=== PATIENT | female | born 1965 | race Caucasian/White ===

== ENCOUNTER 2018-04-10 01:00 | Emergency (ER) | payer MEDICAID ==
[2018-04-10] VITALS (12 sets, daily range): BP systolic 118–174; BP diastolic 61–108
[~2018-04-10] VITALS: Ht 172.7 cm; Wt 88.5 kg
[2018-04-10 01:49] LABS: MEAN CORPUSCULAR HEMOGLOBIN 18.5 PG (27.0-31.0); MEAN CORPUSCULAR HGB CONC 31.9 % (33.0-36.5); MEAN PLATELET VOLUME 8.5 FL (7.4-10.4); PLATELET COUNT 452 X10'3 (140-440); RED CELL DISTRIBUTION WIDTH 19.8 % (11.5-14.5)
[2018-04-10 01:52] LABS: HEMATOCRIT 15.7 % (35.0-45.0); WHITE BLOOD COUNT 8.6 X10'3 (4.5-11.0)
[2018-04-10 01:58] LABS: ALANINE AMINOTRANSFERASE 24 U/L (12-78); ALBUMIN 2.9 G/DL (3.4-5.0); ALBUMIN/GLOBULIN RATIO 0.8 (1.1-1.5); ALKALINE PHOSPHATASE 78 IU/L (46-116); ANION GAP 10 (8-16); ASPARTATE AMINO TRANSFERASE 18 U/L (10-37); BILIRUBIN,TOTAL 0.2 MG/DL (0.1-1.0); BLOOD UREA NITROGEN 15 MG/DL (7-18); CALCIUM 8.9 MG/DL (8.5-10.1); CHLORIDE 103 MMOL/L (99-107); GLUCOSE 97 MG/DL (70-104); POTASSIUM 4.2 MMOL/L (3.5-5.1); SODIUM 140 MMOL/L (135-145); TOTAL CARBON DIOXIDE 27.3 MMOL/L (24-32); TOTAL PROTEIN 6.7 G/DL (6.4-8.2); eGFR 58 ML/MIN
[2018-04-10] MEDS ORDERED: tranexamic acid inj. 800 MG in normal saline 100ml IV soln 92 ML IV ONE (02:05)
[2018-04-10 02:09] LABS: D-DIMER 0.76 MG/L FEU (0-0.50); PARTIAL THROMBOPLASTIN TIME 24 SECONDS (22-32)
[2018-04-10] MEDS ORDERED: tranexamic acid 100mg/ml inj. IV ONE (02:10)
[2018-04-10 02:16] LABS: HYPOCHROMASIA 3+; MICROCYTOSIS 3+; PLATELET ESTIMATE INCREASED; POLYCHROMASIA 1+; TOTAL CELLS COUNTED 100
[2018-04-10 02:17] LABS: ANISOCYTOSIS 2+; ELLIPTOCYTES 1+; POIKILOCYTOSIS 1+
[2018-04-10 02:18] LABS: GIANT PLATELET FEW; LARGE PLATELETS FEW
[2018-04-10] MEDS ORDERED: tranexamic acid inj. 890 MG in normal saline 100ml IV soln 91.1 ML IV ONE (02:20)
[2018-04-10 10:17] LABS: BASOPHILS # (AUTO) 0.1 X10'3 (0-0.2); BASOPHILS % (AUTO) 1.3 % (0-1); EOSINOPHILS # (AUTO) 0.5 X10'3 (0-0.9); EOSINOPHILS % (AUTO) 5.7 % (0-6); HEMATOCRIT 23.4 % (35.0-45.0); HEMOGLOBIN 7.3 g/dl (12.0-16.0); LYMPHOCYTES # (AUTO) 1.8 X10'3 (1.1-4.8); LYMPHOCYTES % (AUTO) 20.7 % (21-51); MEAN CORPUSCULAR HEMOGLOBIN 21.4 PG (27.0-31.0); MEAN CORPUSCULAR HGB CONC 31.2 % (33.0-36.5); MEAN CORPUSCULAR VOLUME 68.5 FL (78-98); MEAN PLATELET VOLUME 8.4 FL (7.4-10.4); MONOCYTES # (AUTO) 1.2 X10'3 (0-0.9); NEUTROPHILS # (AUTO) 5.1 X10'3 (1.8-7.7); NEUTROPHILS % (AUTO) 58.3 % (42-75); PLATELET COUNT 373 X10'3 (140-440); RED BLOOD COUNT 3.41 X10'6 (4.20-5.60); WHITE BLOOD COUNT 8.8 X10'3 (4.5-11.0)
[2018-04-10 10:49] LABS: ANISOCYTOSIS 3+; HYPOCHROMASIA 2+; MICROCYTOSIS 2+; PLATELET ESTIMATE NORMAL; TARGET CELLS FEW
[2018-04-10 10:50] LABS: ELLIPTOCYTES FEW
== END 2018-04-10 11:56 | disposition short-term general hospital (02) ==
LOC: ER 01:01
DX: D25.9 Leiomyoma of uterus, unspecified (principal); N94.6 Dysmenorrhea, unspecified; R42 Dizziness and giddiness; M79.89 Other specified soft tissue disorders; Z88.2 Allergy status to sulfonamides
CPT/HCPCS: 36415; 36430; 71045; 76856; 80053; 84484; 85025; 85379; 85610; 85730; 86885; 86900; 86901; 86920; 93005; 93971; 96374; 99285; P9016; J7030

== ENCOUNTER 2018-10-22 15:18 | Emergency (ER) | payer MEDICAID ==
[~2018-10-22] VITALS: Ht 172.7 cm; Wt 90.0 kg
[2018-10-22 15:47] LABS: BASOPHILS # (AUTO) 0.1 X10'3 (0-0.2); BASOPHILS % (AUTO) 1.1 % (0-1); EOSINOPHILS # (AUTO) 0.4 X10'3 (0-0.9); EOSINOPHILS % (AUTO) 5.2 % (0-6); HEMATOCRIT 29.6 % (35.0-45.0); HEMOGLOBIN 9.9 g/dl (12.0-16.0); LYMPHOCYTES # (AUTO) 1.7 X10'3 (1.1-4.8); LYMPHOCYTES % (AUTO) 22.5 % (21-51); MEAN CORPUSCULAR HEMOGLOBIN 28.5 PG (27.0-31.0); MEAN CORPUSCULAR HGB CONC 33.6 g/dL (33.0-36.5); MEAN CORPUSCULAR VOLUME 84.6 FL (78-98); MONOCYTES # (AUTO) 0.7 X10'3 (0-0.9); MONOCYTES % (AUTO) 9.1 % (2-12); NEUTROPHILS # (AUTO) 4.6 X10'3 (1.8-7.7); NEUTROPHILS % (AUTO) 62.1 % (42-75); PLATELET COUNT 291 X10'3 (140-440); RED BLOOD COUNT 3.49 X10'6 (4.20-5.60); RED CELL DISTRIBUTION WIDTH 18.1 % (11.5-14.5); WHITE BLOOD COUNT 7.4 X10'3 (4.5-11.0)
[2018-10-22 16:00] LABS: ALANINE AMINOTRANSFERASE 26 U/L (12-78); ALBUMIN 2.9 G/DL (3.4-5.0); ALBUMIN/GLOBULIN RATIO 0.9 (1.1-1.5); ALKALINE PHOSPHATASE 61 IU/L (46-116); ANION GAP 6 (8-16); ASPARTATE AMINO TRANSFERASE 20 U/L (10-37); BILIRUBIN,TOTAL 0.2 MG/DL (0.1-1.0); BLOOD UREA NITROGEN 13 MG/DL (7-18); BUN/CREATININE RATIO 16.7 (6.6-38.0); CALCIUM 9.1 MG/DL (8.5-10.1); CHLORIDE 104 MMOL/L (99-107); CREATININE 0.78 MG/DL (0.40-0.90); GLUCOSE 89 MG/DL (70-104); POTASSIUM 4.1 MMOL/L (3.5-5.1); SODIUM 138 MMOL/L (135-145); TOTAL PROTEIN 6.3 G/DL (6.4-8.2); eGFR 77 ML/MIN
[2018-10-22 16:43] VITALS: BP 107/64
[2018-10-22] MEDS ORDERED: ibuprofen tablet 400 MG TABLET PO ONE (16:55)
--- NOTE | 2018-10-22 17:18 | NUR ---
ASSISTED PT TO REMOVE PAD AND TAMPON, SCANT AMOUT OF OLD BLOOD ON PAD, TAMPON WITH BROWN/OLD BLOOD, NO GUSHING NOTED. POSITION PT ON CHANNEL LAYER TABLE.
--- NOTE | 2018-10-22 17:46 | NUR ---
pt not able to give us urine, have to draw more labs, pt states has situation at home and wants to leave, provider vince aware.
[2018-10-22 18:00] LABS: HEMATOCRIT 30.1 % (35.0-45.0); HEMOGLOBIN 10.1 g/dl (12.0-16.0); MEAN CORPUSCULAR HEMOGLOBIN 28.6 PG (27.0-31.0); MEAN CORPUSCULAR HGB CONC 33.6 g/dL (33.0-36.5); MEAN CORPUSCULAR VOLUME 85.1 FL (78-98); MEAN PLATELET VOLUME 7.9 FL (7.4-10.4); PLATELET COUNT 293 X10'3 (140-440); RED BLOOD COUNT 3.53 X10'6 (4.20-5.60); WHITE BLOOD COUNT 9.7 X10'3 (4.5-11.0)
== END 2018-10-22 17:59 | disposition home or self-care (01) ==
LOC: ER 15:19
DX: N93.9 Abnormal uterine and vaginal bleeding, unspecified (principal); R06.02 Shortness of breath; Z88.2 Allergy status to sulfonamides
CPT/HCPCS: 36415; 80053; 85025; 85027; 99283

== ENCOUNTER 2019-07-14 00:38 | Emergency (ER) | payer MEDICAID ==
[~2019-07-14] VITALS: Ht 172.7 cm; Wt 90.9 kg
[2019-07-14] VITALS (7 sets, daily range): BP systolic 129–165; BP diastolic 77–100
[2019-07-14 01:25] LABS: BASOPHILS # (AUTO) 0.1 X10'3 (0-0.2); EOSINOPHILS # (AUTO) 0.5 X10'3 (0-0.9); EOSINOPHILS % (AUTO) 5.9 % (0-6); LYMPHOCYTES # (AUTO) 1.8 X10'3 (1.1-4.8); LYMPHOCYTES % (AUTO) 19.5 % (21-51); MEAN CORPUSCULAR HEMOGLOBIN 23.7 PG (27.0-31.0); MEAN CORPUSCULAR HGB CONC 32.2 g/dL (33.0-36.5); MEAN CORPUSCULAR VOLUME 73.5 FL (78-98); MEAN PLATELET VOLUME 7.6 FL (7.4-10.4); MONOCYTES % (AUTO) 11.2 % (2-12); NEUTROPHILS # (AUTO) 5.8 X10'3 (1.8-7.7); NEUTROPHILS % (AUTO) 62.4 % (42-75); PLATELET COUNT 340 X10'3 (140-440); RED BLOOD COUNT 2.46 X10'6 (4.20-5.60); RED CELL DISTRIBUTION WIDTH 20.8 % (11.5-14.5); WHITE BLOOD COUNT 9.3 X10'3 (4.5-11.0)
[2019-07-14 01:30] LABS: HEMATOCRIT 18.1 % (35.0-45.0); HEMOGLOBIN 5.8 g/dl (12.0-16.0)
[2019-07-14 01:40] LABS: ALANINE AMINOTRANSFERASE 34 U/L (12-78); ALBUMIN 3.1 G/DL (3.4-5.0); ALBUMIN/GLOBULIN RATIO 0.9 (1.1-1.5); ALKALINE PHOSPHATASE 78 IU/L (46-116); ANION GAP 6 (8-16); ASPARTATE AMINO TRANSFERASE 31 U/L (10-37); BILIRUBIN,TOTAL 0.2 MG/DL (0.1-1.0); BLOOD UREA NITROGEN 16 MG/DL (7-18); BUN/CREATININE RATIO 17.4 (6.6-38.0); CALCIUM 9.2 MG/DL (8.5-10.1); CHLORIDE 106 MMOL/L (99-107); CREATININE 0.92 MG/DL (0.40-0.90); GLUCOSE 102 MG/DL (70-104); POTASSIUM 4.2 MMOL/L (3.5-5.1); SODIUM 139 MMOL/L (135-145); TOTAL CARBON DIOXIDE 26.7 MMOL/L (24-32); TOTAL PROTEIN 6.5 G/DL (6.4-8.2); eGFR 64 ML/MIN
[2019-07-14] MEDS ORDERED: TRANEXAMIC ACID IV ONE (02:25)
[2019-07-14] MEDS ORDERED: NORMAL SALINE IV ONE (02:25)
[2019-07-14] MEDS ORDERED: TRANEXAMIC ACID 1 GM IN NACL,ISO-OS 100 ML IV ONE (02:35)
[2019-07-14] MEDS ORDERED: iohexol 300mg/ml 100ml inj. ONE (02:56)
[2019-07-14 03:27] LABS: PLATELET ESTIMATE NORMAL
[2019-07-14 03:28] LABS: ANISOCYTOSIS 2+; HYPOCHROMASIA 1+; MICROCYTOSIS 1+
[2019-07-14] MEDS ORDERED: fluconazole 150mg tablet PO ONE (05:20)
[2019-07-14 12:04] LABS: BASOPHILS # (AUTO) 0.1 X10'3 (0-0.2); BASOPHILS % (AUTO) 1.4 % (0-1); EOSINOPHILS # (AUTO) 0.5 X10'3 (0-0.9); EOSINOPHILS % (AUTO) 5.4 % (0-6); LYMPHOCYTES % (AUTO) 21.8 % (21-51); MEAN CORPUSCULAR HEMOGLOBIN 24.5 PG (27.0-31.0); MEAN CORPUSCULAR HGB CONC 32.2 g/dL (33.0-36.5); MEAN CORPUSCULAR VOLUME 76.1 FL (78-98); MEAN PLATELET VOLUME 8.1 FL (7.4-10.4); MONOCYTES # (AUTO) 0.7 X10'3 (0-0.9); MONOCYTES % (AUTO) 7.2 % (2-12); NEUTROPHILS # (AUTO) 5.8 X10'3 (1.8-7.7); NEUTROPHILS % (AUTO) 64.2 % (42-75); PLATELET COUNT 328 X10'3 (140-440); RED BLOOD COUNT 2.85 X10'6 (4.20-5.60); RED CELL DISTRIBUTION WIDTH 20.5 % (11.5-14.5); WHITE BLOOD COUNT 9.1 X10'3 (4.5-11.0)
[2019-07-14 12:15] LABS: HEMATOCRIT 21.7 % (35.0-45.0)
[2019-07-14 12:30] LABS: BASOPHILS # (AUTO) 0.1 X10'3 (0-0.2); BASOPHILS % (AUTO) 1.3 % (0-1); EOSINOPHILS # (AUTO) 0.4 X10'3 (0-0.9); EOSINOPHILS % (AUTO) 4.3 % (0-6); HEMATOCRIT 26.2 % (35.0-45.0); HEMOGLOBIN 8.5 g/dl (12.0-16.0); LYMPHOCYTES # (AUTO) 1.4 X10'3 (1.1-4.8); LYMPHOCYTES % (AUTO) 14.5 % (21-51); MEAN CORPUSCULAR HEMOGLOBIN 24.5 PG (27.0-31.0); MEAN CORPUSCULAR HGB CONC 32.4 g/dL (33.0-36.5); MEAN CORPUSCULAR VOLUME 75.7 FL (78-98); MEAN PLATELET VOLUME 7.7 FL (7.4-10.4); MONOCYTES # (AUTO) 0.9 X10'3 (0-0.9); NEUTROPHILS # (AUTO) 7.1 X10'3 (1.8-7.7); NEUTROPHILS % (AUTO) 70.9 % (42-75); PLATELET COUNT 326 X10'3 (140-440); RED BLOOD COUNT 3.46 X10'6 (4.20-5.60)
[2019-07-14 13:23] LABS: ANISOCYTOSIS 2+; HYPOCHROMASIA 1+; MICROCYTOSIS 1+; PLATELET ESTIMATE NORMAL; POLYCHROMASIA FEW
== END 2019-07-14 13:37 | disposition home or self-care (01) ==
LOC: ER 00:39
DX: N92.1 Excessive and frequent menstruation with irregular cycle (principal); D64.9 Anemia, unspecified; D21.9 Benign neoplasm of connective and other soft tissue, unspecified; Z88.2 Allergy status to sulfonamides
CPT/HCPCS: 36415; 36430; 71045; 74177; 80053; 83880; 84484; 85025; 86885; 86900; 86901; 86920; 93005; 96365; 99285; P9016; Q9967

== ENCOUNTER 2020-03-31 14:38 | Emergency (ER) | payer MEDICAID ==
[~2020-03-31] VITALS: Ht 172.7 cm; Wt 90.0 kg
[2020-03-31 15:31] LABS: BASOPHILS # (AUTO) 0.1 X10'3 (0-0.2); BASOPHILS % (AUTO) 1.4 % (0-1); EOSINOPHILS # (AUTO) 0.8 X10'3 (0-0.9); EOSINOPHILS % (AUTO) 7.2 % (0-6); HEMATOCRIT 22.4 % (35.0-45.0); HEMOGLOBIN 7.1 g/dl (12.0-16.0); LYMPHOCYTES # (AUTO) 2.2 X10'3 (1.1-4.8); LYMPHOCYTES % (AUTO) 20.9 % (21-51); MEAN CORPUSCULAR HEMOGLOBIN 24.3 PG (27.0-31.0); MEAN CORPUSCULAR HGB CONC 31.6 g/dL (33.0-36.5); MEAN PLATELET VOLUME 7.3 FL (7.4-10.4); MONOCYTES # (AUTO) 0.8 X10'3 (0-0.9); MONOCYTES % (AUTO) 7.1 % (2-12); NEUTROPHILS # (AUTO) 6.7 X10'3 (1.8-7.7); NEUTROPHILS % (AUTO) 63.4 % (42-75); PLATELET COUNT 393 X10'3 (140-440); RED BLOOD COUNT 2.91 X10'6 (4.20-5.60); WHITE BLOOD COUNT 10.6 X10'3 (4.5-11.0)
[2020-03-31 15:44] LABS: ALANINE AMINOTRANSFERASE 52 U/L (12-78); ALBUMIN 3.2 G/DL (3.4-5.0); ALBUMIN/GLOBULIN RATIO 0.7 (1.1-1.5); ALKALINE PHOSPHATASE 130 IU/L (46-116); ANION GAP 7 (8-16); ASPARTATE AMINO TRANSFERASE 26 U/L (10-37); BILIRUBIN,TOTAL 0.2 MG/DL (0.1-1.0); BLOOD UREA NITROGEN 15 MG/DL (7-18); BUN/CREATININE RATIO 13.9 (6.6-38.0); CALCIUM 9.2 MG/DL (8.5-10.1); CHLORIDE 104 MMOL/L (99-107); CREATININE 1.08 MG/DL (0.40-0.90); GLUCOSE 111 MG/DL (70-104); SODIUM 137 MMOL/L (135-145); TOTAL CARBON DIOXIDE 25.7 MMOL/L (24-32); TOTAL PROTEIN 7.6 G/DL (6.4-8.2); eGFR 53 ML/MIN
--- NOTE | 2020-03-31 15:58 | NUR ---
PT MOVED FROM FTD TO ER BED 8 D/T NEED FOR HIGHER LEVEL OF CARE. PT HBG/HCT 7.06/16. PT TAKEN TO BED VIA WC ONCE IN ROOM PT STATES SHE NEEDS TO USE THE RESTROOM, SHE DECLINES W/C TO RESTROOM. PT AMBULATED WITH STEADY GAIT. INQUIRED IF PT COULD PROVIDE A UA PT REFUSES. REPORT GIVEN TO BLADIMIR CASTILLO AND REJI CASTILLO.
[2020-03-31 16:39] LABS: ANISOCYTOSIS 2+; HYPOCHROMASIA 1+; MICROCYTOSIS 1+; PLATELET ESTIMATE NORMAL; POLYCHROMASIA 2+
[2020-03-31 16:40] LABS: POIKILOCYTOSIS 1+
[2020-03-31] MEDS ORDERED: normal saline 1000ml 1,000 ML IV ONE (16:50)
[2020-03-31 17:42] VITALS: BP 176/92
== END 2020-03-31 17:44 | disposition home or self-care (01) ==
LOC: ER 14:39
DX: N89.8 Other specified noninflammatory disorders of vagina (principal); R42 Dizziness and giddiness; R53.1 Weakness; Z88.2 Allergy status to sulfonamides
CPT/HCPCS: 36415; 80053; 85008; 85025; 86885; 86900; 86901; 96360; 99283; J7030

== ENCOUNTER 2020-04-10 15:00 | Emergency (ER) | payer MEDICAID ==
[~2020-04-10] VITALS: Ht 172.7 cm; Wt 100.0 kg
[2020-04-10 15:57] LABS: BASOPHILS # (AUTO) 0.2 X10'3 (0-0.2); BASOPHILS % (AUTO) 2.6 % (0-1); EOSINOPHILS # (AUTO) 0.7 X10'3 (0-0.9); HEMATOCRIT 23.9 % (35.0-45.0); HEMOGLOBIN 7.5 g/dl (12.0-16.0); LYMPHOCYTES # (AUTO) 1.7 X10'3 (1.1-4.8); MEAN CORPUSCULAR HEMOGLOBIN 23.2 PG (27.0-31.0); MEAN CORPUSCULAR HGB CONC 31.3 g/dL (33.0-36.5); MEAN CORPUSCULAR VOLUME 74.1 FL (78-98); MEAN PLATELET VOLUME 7.6 FL (7.4-10.4); MONOCYTES # (AUTO) 0.8 X10'3 (0-0.9); MONOCYTES % (AUTO) 10.1 % (2-12); NEUTROPHILS # (AUTO) 4.8 X10'3 (1.8-7.7); NEUTROPHILS % (AUTO) 58.3 % (42-75); PLATELET COUNT 533 X10'3 (140-440); RED BLOOD COUNT 3.22 X10'6 (4.20-5.60); RED CELL DISTRIBUTION WIDTH 19.2 % (11.5-14.5); WHITE BLOOD COUNT 8.2 X10'3 (4.5-11.0)
[2020-04-10 16:12] LABS: ALANINE AMINOTRANSFERASE 27 U/L (12-78); ALBUMIN 3.3 G/DL (3.4-5.0); ALBUMIN/GLOBULIN RATIO 0.8 (1.1-1.5); ALKALINE PHOSPHATASE 113 IU/L (46-116); ANION GAP 8 (8-16); ASPARTATE AMINO TRANSFERASE 18 U/L (10-37); BILIRUBIN,TOTAL 0.2 MG/DL (0.1-1.0); BLOOD UREA NITROGEN 21 MG/DL (7-18); BUN/CREATININE RATIO 20.6 (6.6-38.0); CALCIUM 9.4 MG/DL (8.5-10.1); CHLORIDE 105 MMOL/L (99-107); CREATININE 1.02 MG/DL (0.40-0.90); GLUCOSE 104 MG/DL (70-104); LIPASE 122 U/L (73-393); POTASSIUM 4.4 MMOL/L (3.5-5.1); SODIUM 140 MMOL/L (135-145); TOTAL CARBON DIOXIDE 27.2 MMOL/L (24-32); TOTAL PROTEIN 7.5 G/DL (6.4-8.2); eGFR 56 ML/MIN
[2020-04-10 16:33] LABS: LARGE PLATELETS FEW; PLATELET ESTIMATE INCREASED
[2020-04-10 16:34] LABS: ANISOCYTOSIS 2+; HYPOCHROMASIA 2+; MICROCYTOSIS 1+; POLYCHROMASIA 1+
[2020-04-10 16:44] LABS: PARTIAL THROMBOPLASTIN TIME 27 SECONDS (22-32)
--- NOTE | 2020-04-10 17:34 | NUR ---
Patient unable to provide urine sample at this time, KARLO Vuong made aware.
[2020-04-10 17:43] VITALS: BP 176/100
== END 2020-04-10 17:49 | disposition home or self-care (01) ==
LOC: ER 15:01
DX: D62 Acute posthemorrhagic anemia (principal); F41.9 Anxiety disorder, unspecified; R06.02 Shortness of breath; N93.9 Abnormal uterine and vaginal bleeding, unspecified; Z88.2 Allergy status to sulfonamides
CPT/HCPCS: 36415; 71045; 80053; 83690; 84484; 85008; 85025; 85610; 85730; 93005; 99285

== ENCOUNTER 2021-09-22 02:44 | Inpatient (IN) | payer MEDICAID ==
[~2021-09-22] VITALS: Ht 172.7 cm; Wt 99.0 kg
[2021-09-22 03:37] LABS: EOSINOPHILS # (AUTO) 0.6 X10'3 (0-0.9); HEMOGLOBIN 7.4 g/dl (12.0-16.0); MEAN CORPUSCULAR HGB CONC 32.4 g/dL (33.0-36.5); MEAN PLATELET VOLUME 7.4 FL (7.4-10.4)
[2021-09-22 03:38] LABS: BASOPHILS # (AUTO) 0.1 X10'3 (0-0.2); BASOPHILS % (AUTO) 1.2 % (0-1); EOSINOPHILS % (AUTO) 6.3 % (0-6); HEMATOCRIT 22.8 % (35.0-45.0); LYMPHOCYTES # (AUTO) 1.6 X10'3 (1.1-4.8); LYMPHOCYTES % (AUTO) 15.5 % (21-51); MEAN CORPUSCULAR HEMOGLOBIN 26.6 PG (27.0-31.0); MEAN CORPUSCULAR VOLUME 82.1 FL (78-98); MONOCYTES # (AUTO) 1.2 X10'3 (0-0.9); MONOCYTES % (AUTO) 11.7 % (2-12); NEUTROPHILS # (AUTO) 6.7 X10'3 (1.8-7.7); NEUTROPHILS % (AUTO) 65.3 % (42-75); PLATELET COUNT 531 X10'3 (140-440); RED BLOOD COUNT 2.78 X10'6 (4.20-5.60); RED CELL DISTRIBUTION WIDTH 15.7 % (11.5-14.5); WHITE BLOOD COUNT 10.3 X10'3 (4.5-11.0)
[2021-09-22 03:44] LABS: ALANINE AMINOTRANSFERASE 28 U/L (12-78); ALBUMIN 3.2 G/DL (3.4-5.0); ALBUMIN/GLOBULIN RATIO 0.8 (1.1-1.5); ALKALINE PHOSPHATASE 102 IU/L (46-116); ANION GAP 10 (8-16); ASPARTATE AMINO TRANSFERASE 22 U/L (10-37); BILIRUBIN,TOTAL 0.7 MG/DL (0.1-1.0); BLOOD UREA NITROGEN 16 MG/DL (7-18); BUN/CREATININE RATIO 19.5 (6.6-38.0); CALCIUM 9.2 MG/DL (8.5-10.1); CHLORIDE 106 MMOL/L (99-107); CREATININE 0.82 MG/DL (0.40-0.90); GLUCOSE 94 MG/DL (70-104); POTASSIUM 3.3 MMOL/L (3.5-5.1); SODIUM 140 MMOL/L (135-145); TOTAL CARBON DIOXIDE 24.3 MMOL/L (24-32); TOTAL PROTEIN 7.3 G/DL (6.4-8.2); eGFR 72 ML/MIN
[2021-09-22] MEDS ORDERED: aspirin 81mg tab.chew PO ONE (04:00)
[2021-09-22] MEDS ORDERED: potassium Cl 20 mEq SR tablet PO STA (04:00)
[2021-09-22] MEDS ORDERED: HYDROcodone/acetaminophen 5mg/325mg tablet PO PRN (04:25)
[2021-09-22] MEDS ORDERED: acetaminophen 325mg tablet PO PRN ×2 (04:25)
[2021-09-22] MEDS ORDERED: magnesium 2GM in 50ml NS 50 ML IV PRN (04:25)
[2021-09-22] MEDS ORDERED: morphine 2 MG/ML inj. syringe IV PRN (04:25)
[2021-09-22] MEDS ORDERED: magnesium Cl slow-release 64mg tablet PO PRN (04:25)
[2021-09-22] MEDS ORDERED: normal saline 1000ml 1,000 ML IV SCH (04:25)
[2021-09-22] MEDS ORDERED: potassium Cl 20 mEq SR tablet PO PRN ×2 (04:25)
[2021-09-22] MEDS ORDERED: magnesium 4gm in 100ml NS 100 ML IV PRN (04:25)
[2021-09-22] MEDS ORDERED: ondansetron/PF 4mg/2ml inj IV PRN (04:25)
[2021-09-22] MEDS ORDERED: potassium CL 10mEq/100ml bag 100 ML IV PRN (04:25)
[2021-09-22 05:17] VITALS: BP 132/83
[2021-09-22] MEDS ORDERED: CefTRIAXone 2gm/NS 100ml IVPB 100 ML IV ONE (05:30)
[2021-09-22] MEDS ORDERED: CefTRIAXone 2gm/NS 100ml IVPB 50 ML IV ONE (05:30)
[2021-09-22 05:36] VITALS: BP 145/85
[2021-09-22 06:03] LABS: CLARITY,URINE CLEAR (Clear); COLOR,URINE YELLOW (Yellow); GLUCOSE, URINE NEGATIVE (Neg); KETONES,URINE NEGATIVE (Neg); LEUKOCYTE ESTERASE ,URINE NEGATIVE (Neg); NITRITES, URINE NEGATIVE (Neg); OCCULT BLOOD,URINE NEGATIVE (Neg); PROTEIN,URINE NEGATIVE (Neg); UROBILINOGEN,URINE 0.2 E.U/dL (0.2-1.0)
[2021-09-22 06:22] LABS: UA COLLECTION TYPE NON-SPECIFIED
[2021-09-22 06:57] VITALS: BP 129/82
--- NOTE | 2021-09-22 07:00 | NUR ---
pt tolerating prbcs well. increased to 300cc/hr
[2021-09-22 07:20] VITALS: BP 141/89
--- NOTE | 2021-09-22 07:20 | NUR ---
blood transfusion ended. pt tolerated well. no reaction.
[2021-09-22] MEDS ORDERED: K and/or MAG REPLACEMENT MC SCH (08:00)
[2021-09-22] MEDS ORDERED: pantoprazole 40MG/NS 100ML BAG 100 ML IV SCH (08:00)
[2021-09-22 12:40] LABS: HEMATOCRIT 26.3 % (35.0-45.0); HEMOGLOBIN 8.8 g/dl (12.0-16.0); MEAN CORPUSCULAR HEMOGLOBIN 27.7 PG (27.0-31.0); MEAN CORPUSCULAR HGB CONC 33.4 g/dL (33.0-36.5); MEAN CORPUSCULAR VOLUME 82.8 FL (78-98); PLATELET COUNT 474 X10'3 (140-440); RED BLOOD COUNT 3.18 X10'6 (4.20-5.60); RED CELL DISTRIBUTION WIDTH 15.9 % (11.5-14.5); WHITE BLOOD COUNT 10.2 X10'3 (4.5-11.0)
[2021-09-22 14:36] VITALS: BP 117/74
== END 2021-09-22 15:24 | disposition home or self-care (01) | DRG 532 ==
LOC: ER 02:44 → UNDOADMIN 04:26 → ED HOLD 04:26 → UNDODISIN 15:24
PROVIDERS: ADMIT Internal Medicine; ATTEND Family Medicine
PROC: 30233N1 Transfusion of Nonautologous Red Blood Cells into Peripheral Vein, Percutaneous Approach (ICD-10-PCS; principal; 2021-09-22)
DX: N93.9 Abnormal uterine and vaginal bleeding, unspecified (principal); I21.A1 Myocardial infarction type 2; D64.9 Anemia, unspecified; D25.9 Leiomyoma of uterus, unspecified; M25.551 Pain in right hip; R91.8 Other nonspecific abnormal finding of lung field; E87.6 Hypokalemia; K92.2 Gastrointestinal hemorrhage, unspecified; F17.210 Nicotine dependence, cigarettes, uncomplicated; Z88.2 Allergy status to sulfonamides
CPT/HCPCS: 36415; 36430; 71045; 80053; 81003; 83605; 83880; 84484; 85025; 85027; 86885; 86900; 86901; 86920; 87040; 93306; 99291; C9113; G0378; J0696; J7030; P9016

== ENCOUNTER 2021-09-30 05:20 | Emergency (ER) | payer MEDICAID ==
[~2021-09-30] VITALS: Ht 172.7 cm; Wt 93.5 kg
[2021-09-30 06:01] LABS: BASOPHILS # (AUTO) 0.1 X10'3 (0-0.2); BASOPHILS % (AUTO) 1.1 % (0-1); EOSINOPHILS # (AUTO) 0.6 X10'3 (0-0.9); EOSINOPHILS % (AUTO) 5.6 % (0-6); HEMOGLOBIN 9.1 g/dl (12.0-16.0); LYMPHOCYTES # (AUTO) 1.6 X10'3 (1.1-4.8); LYMPHOCYTES % (AUTO) 15.1 % (21-51); MEAN CORPUSCULAR HEMOGLOBIN 25.4 PG (27.0-31.0); MEAN CORPUSCULAR HGB CONC 31.4 g/dL (33.0-36.5); MEAN PLATELET VOLUME 7.3 FL (7.4-10.4); MONOCYTES # (AUTO) 0.9 X10'3 (0-0.9); MONOCYTES % (AUTO) 8.7 % (2-12); NEUTROPHILS # (AUTO) 7.4 X10'3 (1.8-7.7); NEUTROPHILS % (AUTO) 69.5 % (42-75); PLATELET COUNT 416 X10'3 (140-440); RED BLOOD COUNT 3.58 X10'6 (4.20-5.60); RED CELL DISTRIBUTION WIDTH 18.1 % (11.5-14.5); WHITE BLOOD COUNT 10.6 X10'3 (4.5-11.0)
[2021-09-30] MEDS ORDERED: TERB250T89 PO (06:03)
[2021-09-30] MEDS ORDERED: LISI1TAB51 PO (06:03)
[2021-09-30] MEDS ORDERED: LOSA1TAB36 PO (06:03)
[2021-09-30] MEDS ORDERED: FERR325T7 PO (06:03)
--- NOTE | 2021-09-30 06:05 | NUR ---
Port cxr done, pt pink, alert, no acute/resp distress. Bed in lowest position, wheels locked, rail 2/2 up, call rubio in reach. PIV site c/d/i s s/s complication or adverse. Labs drawn from PIV start, labeled, walked to lab.
--- NOTE | 2021-09-30 06:06 | NUR ---
Handoff report to dayshift RN
[2021-09-30 06:17] LABS: ALANINE AMINOTRANSFERASE 19 U/L (12-78); ALBUMIN 3.3 G/DL (3.4-5.0); ALBUMIN/GLOBULIN RATIO 0.8 (1.1-1.5); ALKALINE PHOSPHATASE 89 IU/L (46-116); ANION GAP 9 (8-16); ASPARTATE AMINO TRANSFERASE 19 U/L (10-37); BILIRUBIN,TOTAL 0.2 MG/DL (0.1-1.0); BLOOD UREA NITROGEN 16 MG/DL (7-18); BUN/CREATININE RATIO 17.6 (6.6-38.0); CALCIUM 9.3 MG/DL (8.5-10.1); CHLORIDE 103 MMOL/L (99-107); CREATININE 0.91 MG/DL (0.40-0.90); GLUCOSE 120 MG/DL (70-104); POTASSIUM 3.4 MMOL/L (3.5-5.1); SODIUM 137 MMOL/L (135-145); TOTAL CARBON DIOXIDE 24.6 MMOL/L (24-32); TOTAL PROTEIN 7.4 G/DL (6.4-8.2); eGFR 64 ML/MIN
[2021-09-30] MEDS ORDERED: LIDOcaine Viscous 15ml cup MM ONE (06:25)
[2021-09-30] MEDS ORDERED: mag hydrox/Alum hydrox/simeth 30ml oral suspension PO ONE ×2 (06:25→07:35)
[2021-09-30] MEDS ORDERED: famotidine/PF 10 mg/ml inj IV ONE (07:00)
[2021-09-30] MEDS ORDERED: pantoprazole 40mg Tablet.DR PO ONE (07:00)
[2021-09-30] MEDS ORDERED: PANT20TA2 PO (09:32)
[2021-09-30 09:39] VITALS: BP 141/90
== END 2021-09-30 10:01 | disposition home or self-care (01) ==
LOC: ER 05:21
DX: R07.89 Other chest pain (principal); R11.10 Vomiting, unspecified; I10 Essential (primary) hypertension; Z86.2 Personal history of diseases of the blood and blood-forming organs and certain disorders involving the immune mechanism; Z72.89 Other problems related to lifestyle; Z88.2 Allergy status to sulfonamides; Z79.899 Other long term (current) drug therapy
CPT/HCPCS: 36415; 71045; 80053; 84484; 85025; 93005; 96374; 99285; J3490; 83880

== ENCOUNTER 2021-10-15 13:15 | Emergency (ER) | payer MEDICAID ==
[~2021-10-15] VITALS: Ht 172.7 cm; Wt 95.5 kg
[~2021-10-15 13:15] MED LIST: FERR325T7 PO; LISI1TAB51 PO; LOSA1TAB36 PO; PANT20TA2 PO; TERB250T89 PO
[2021-10-15 14:29] LABS: ALANINE AMINOTRANSFERASE 17 U/L (12-78); ALBUMIN/GLOBULIN RATIO 0.9 (1.1-1.5); ALKALINE PHOSPHATASE 74 IU/L (46-116); AMYLASE 64 U/L (25-115); ANION GAP 8 (8-16); ASPARTATE AMINO TRANSFERASE 16 U/L (10-37); BILIRUBIN,TOTAL 0.1 MG/DL (0.1-1.0); BLOOD UREA NITROGEN 37 MG/DL (7-18); BUN/CREATININE RATIO 45.7 (6.6-38.0); CALCIUM 9.5 MG/DL (8.5-10.1); CHLORIDE 107 MMOL/L (99-107); CREATININE 0.81 MG/DL (0.40-0.90); GLUCOSE 99 MG/DL (70-104); LIPASE 149 U/L (73-393); POTASSIUM 3.8 MMOL/L (3.5-5.1); SODIUM 139 MMOL/L (135-145); TOTAL CARBON DIOXIDE 24.5 MMOL/L (24-32); TOTAL PROTEIN 6.5 G/DL (6.4-8.2); eGFR 73 ML/MIN
[2021-10-15 15:42] LABS: BASOPHILS # (AUTO) 0.1 X10'3 (0-0.2); EOSINOPHILS # (AUTO) 0.5 X10'3 (0-0.9); EOSINOPHILS % (AUTO) 5.5 % (0-6); HEMATOCRIT 23.9 % (35.0-45.0); HEMOGLOBIN 7.4 g/dl (12.0-16.0); LYMPHOCYTES # (AUTO) 2.1 X10'3 (1.1-4.8); LYMPHOCYTES % (AUTO) 22.4 % (21-51); MEAN CORPUSCULAR HEMOGLOBIN 25.6 PG (27.0-31.0); MEAN CORPUSCULAR VOLUME 82.4 FL (78-98); MEAN PLATELET VOLUME 7.6 FL (7.4-10.4); MONOCYTES # (AUTO) 1.2 X10'3 (0-0.9); MONOCYTES % (AUTO) 12.1 % (2-12); NEUTROPHILS # (AUTO) 5.6 X10'3 (1.8-7.7); PLATELET COUNT 407 X10'3 (140-440); RED CELL DISTRIBUTION WIDTH 20.5 % (11.5-14.5); WHITE BLOOD COUNT 9.6 X10'3 (4.5-11.0)
[2021-10-15 16:10] LABS: ANISOCYTOSIS 3+; ELLIPTOCYTES FEW; HYPOCHROMASIA 1+; LARGE PLATELETS FEW; PLATELET ESTIMATE NORMAL
[2021-10-15] MEDS ORDERED: morphine 4 MG/ML inj SYRINge IV ONE (20:05)
[2021-10-15 21:07] LABS: URINE HCG NEGATIVE (NEG)
[2021-10-15 21:12] LABS: CLARITY,URINE SLIGHTLY CLOUDY (Clear); COLOR,URINE YELLOW (Yellow); GLUCOSE, URINE NEGATIVE (Neg); KETONES,URINE NEGATIVE (Neg); LEUKOCYTE ESTERASE ,URINE NEGATIVE (Neg); NITRITES, URINE NEGATIVE (Neg); OCCULT BLOOD,URINE LARGE (Neg); PROTEIN,URINE NEGATIVE (Neg); UA COLLECTION TYPE CLN CATCH MIDSTREAM; UROBILINOGEN,URINE 0.2 E.U/dL (0.2-1.0)
[2021-10-15 21:26] LABS: BACTERIA,URINE FEW /HPF (Neg); MUCUS STRANDS NONE SEEN /LPF (Neg); RBC,URINE 50-100 /HPF (0-2); SQUAMOUS EPITHELIAL CELL,UR FEW /LPF (FEW); WBC,URINE 0-4 /HPF (0-4)
[2021-10-15 21:45] VITALS: BP 114/62
[2021-10-15 22:01] VITALS: BP 92/61
[2021-10-15] MEDS ORDERED: medroxyprogesterone acet. 2.5mg tablet PO STA (22:04)
[2021-10-15 22:45] VITALS: BP 117/78
[2021-10-15 23:45] VITALS: BP 112/72
[2021-10-16 00:09] VITALS: BP 121/73
== END 2021-10-16 00:40 | disposition home or self-care (01) ==
LOC: ER 13:16
DX: N93.8 Other specified abnormal uterine and vaginal bleeding (principal); D64.9 Anemia, unspecified; Z90.710 Acquired absence of both cervix and uterus; I10 Essential (primary) hypertension; Z72.89 Other problems related to lifestyle; Z88.2 Allergy status to sulfonamides; Z79.899 Other long term (current) drug therapy
CPT/HCPCS: 36415; 36430; 80053; 81001; 81025; 82150; 83690; 85008; 85025; 86885; 86900; 86901; 86920; 93005; 96374; 99285; J2270; P9016

== ENCOUNTER 2022-12-03 02:28 | Emergency (ER) | payer MEDICAID ==
[~2022-12-03] VITALS: Ht 172.7 cm; Wt 100.0 kg
[2022-12-03] MEDS ORDERED: ondansetron/PF 4mg/2ml inj IV ONE (03:50)
[2022-12-03] MEDS ORDERED: normal saline 1000ML IV soln IVB ONE (03:50)
[2022-12-03 04:38] LABS: BASOPHILS # (AUTO) 0.1 X10'3 (0-0.2); BASOPHILS % (AUTO) 0.4 % (0-1); EOSINOPHILS # (AUTO) 0.4 X10'3 (0-0.9); EOSINOPHILS % (AUTO) 3.4 % (0-6); HEMATOCRIT 39.3 % (35.0-45.0); HEMOGLOBIN 12.9 g/dl (12.0-16.0); LYMPHOCYTES # (AUTO) 1.7 X10'3 (1.1-4.8); LYMPHOCYTES % (AUTO) 13.6 % (21-51); MEAN CORPUSCULAR HEMOGLOBIN 28.6 PG (27.0-31.0); MEAN CORPUSCULAR HGB CONC 32.9 g/dL (33.0-36.5); MEAN CORPUSCULAR VOLUME 87.1 FL (78-98); MONOCYTES # (AUTO) 0.8 X10'3 (0-0.9); MONOCYTES % (AUTO) 6.6 % (2-12); NEUTROPHILS # (AUTO) 9.3 X10'3 (1.8-7.7); PLATELET COUNT 286 X10'3 (140-440); RED BLOOD COUNT 4.51 X10'6 (4.20-5.60); RED CELL DISTRIBUTION WIDTH 14.4 % (11.5-14.5); WHITE BLOOD COUNT 12.3 X10'3 (4.5-11.0)
[2022-12-03 04:45] LABS: ALANINE AMINOTRANSFERASE 25 U/L (12-78); ALBUMIN 3.2 G/DL (3.4-5.0); ALBUMIN/GLOBULIN RATIO 0.8 (1.1-1.5); ALKALINE PHOSPHATASE 83 IU/L (46-116); ANION GAP 9 (8-16); ASPARTATE AMINO TRANSFERASE 22 U/L (10-37); BILIRUBIN,TOTAL 0.5 MG/DL (0.1-1.0); BLOOD UREA NITROGEN 18 MG/DL (7-18); BUN/CREATININE RATIO 19.1 (10.0-20.0); CALCIUM 9.3 MG/DL (8.5-10.1); CHLORIDE 105 MMOL/L (99-107); CREATININE 0.94 MG/DL (0.40-0.90); GLUCOSE 108 MG/DL (70-104); POTASSIUM 3.6 MMOL/L (3.5-5.1); SODIUM 139 MMOL/L (135-145); TOTAL CARBON DIOXIDE 24.6 MMOL/L (24-32); TOTAL PROTEIN 7.1 G/DL (6.4-8.2); eGFR 61 ML/MIN
[2022-12-03 04:49] LABS: LIPASE 84 U/L (73-393)
[2022-12-03] MEDS ORDERED: acetaminophen 1,000mg/100ml IV 100 ML IV STA (05:24)
[2022-12-03] MEDS ORDERED: dicyclomine 10 MG capsule PO ONE (05:25)
[2022-12-03 07:22] LABS: CLARITY,URINE CLEAR (Clear); COLOR,URINE YELLOW (Yellow); GLUCOSE, URINE NEGATIVE (Neg); KETONES,URINE NEGATIVE (Neg); LEUKOCYTE ESTERASE ,URINE NEGATIVE (Neg); NITRITES, URINE NEGATIVE (Neg); OCCULT BLOOD,URINE NEGATIVE (Neg); PROTEIN,URINE NEGATIVE (Neg); UROBILINOGEN,URINE 0.2 E.U/dL (0.2-1.0)
[2022-12-03 07:27] LABS: UA COLLECTION TYPE CLN CATCH MIDSTREAM
[2022-12-03 08:19] VITALS: BP 160/93
== END 2022-12-03 08:21 | disposition home or self-care (01) ==
LOC: ER 02:29
DX: R11.2 Nausea with vomiting, unspecified (principal); R19.7 Diarrhea, unspecified; K92.1 Melena; I10 Essential (primary) hypertension; Z86.2 Personal history of diseases of the blood and blood-forming organs and certain disorders involving the immune mechanism; Z88.2 Allergy status to sulfonamides; Z79.899 Other long term (current) drug therapy
CPT/HCPCS: 36415; 80053; 81003; 83690; 84484; 85025; 93005; 96361; 96374; 96375; 99284; J0131; J2405; J7030

== ENCOUNTER 2023-01-13 15:45 | Emergency (ER) | payer MEDICAID ==
[~2023-01-13] VITALS: Ht 165.1 cm; Wt 90.9 kg
[2023-01-13] MEDS ORDERED: HYDROmorphone 1 mg/ml syringe IV ONE ×2 (16:15→16:30)
[2023-01-13 17:02] LABS: BASOPHILS % (AUTO) 0.4 % (0-1); EOSINOPHILS # (AUTO) 0.2 X10'3 (0-0.9); EOSINOPHILS % (AUTO) 1.7 % (0-6); HEMOGLOBIN 11.7 g/dl (12.0-16.0); LYMPHOCYTES # (AUTO) 0.9 X10'3 (1.1-4.8); LYMPHOCYTES % (AUTO) 7.9 % (21-51); MEAN CORPUSCULAR HEMOGLOBIN 28.6 PG (27.0-31.0); MEAN CORPUSCULAR HGB CONC 32.4 g/dL (33.0-36.5); MEAN CORPUSCULAR VOLUME 88.2 FL (78-98); MEAN PLATELET VOLUME 8.1 FL (7.4-10.4); MONOCYTES # (AUTO) 0.8 X10'3 (0-0.9); MONOCYTES % (AUTO) 7.2 % (2-12); NEUTROPHILS # (AUTO) 9.6 X10'3 (1.8-7.7); NEUTROPHILS % (AUTO) 82.8 % (42-75); PLATELET COUNT 282 X10'3 (140-440); RED BLOOD COUNT 4.09 X10'6 (4.20-5.60); RED CELL DISTRIBUTION WIDTH 13.7 % (11.5-14.5); WHITE BLOOD COUNT 11.6 X10'3 (4.5-11.0)
[2023-01-13 17:19] LABS: ALANINE AMINOTRANSFERASE 29 U/L (12-78); ALBUMIN 3.3 G/DL (3.4-5.0); ALBUMIN/GLOBULIN RATIO 0.9 (1.1-1.5); ALKALINE PHOSPHATASE 72 IU/L (46-116); ANION GAP 9 (8-16); ASPARTATE AMINO TRANSFERASE 27 U/L (10-37); BILIRUBIN,TOTAL 0.3 MG/DL (0.1-1.0); BLOOD UREA NITROGEN 21 MG/DL (7-18); BUN/CREATININE RATIO 22.1 (10.0-20.0); CALCIUM 9.2 MG/DL (8.5-10.1); CHLORIDE 106 MMOL/L (99-107); CREATININE 0.95 MG/DL (0.40-0.90); GLUCOSE 108 MG/DL (70-104); POTASSIUM 3.6 MMOL/L (3.5-5.1); SODIUM 139 MMOL/L (135-145); TOTAL CARBON DIOXIDE 24.5 MMOL/L (24-32); TOTAL PROTEIN 6.9 G/DL (6.4-8.2); eCRCL 59 ML/MIN; eGFR 61 ML/MIN
[2023-01-13 17:20] LABS: APTT 29 SECONDS (22-32); PROTHROMBIN TIME 10.7 SECONDS (9.0-12.0)
[2023-01-13 17:21] LABS: ETHANOL < 10 MG/DL (<10)
[2023-01-13 17:41] VITALS: O2SAT 94
[2023-01-13] MEDS ORDERED: normal saline 1000ML IV soln IVB ONE (19:45)
[2023-01-13] MEDS ORDERED: TETanus/Pertussis (Acell)/Diphther VAC/PF (Tdap-Adult) 0.5ml syringe IMVAC ONE (19:50)
[2023-01-13 19:59] VITALS: BP 152/82; PULSE 97; RESP 18; TEMP 98.6
--- NOTE | 2023-01-13 20:12 | NUR ---
report called to antolin clemente rn amb at bedside loading patient for tx
[2023-01-13 20:22] LABS: PRO BRAIN NATRIURETIC PEPTIDE 150 PG/ML (0-125)
== END 2023-01-13 20:16 | disposition short-term general hospital (02) ==
LOC: ER 15:46
DX: S02.92XA Unspecified fracture of facial bones, initial encounter for closed fracture (principal); S27.329A Contusion of lung, unspecified, initial encounter; S26.91XA Contusion of heart, unspecified with or without hemopericardium, initial encounter; S00.531A Contusion of lip, initial encounter; S00.12XA Contusion of left eyelid and periocular area, initial encounter; R55 Syncope and collapse; I10 Essential (primary) hypertension; Z72.89 Other problems related to lifestyle; Z23 Encounter for immunization; Z98.890 Other specified postprocedural states; Z88.2 Allergy status to sulfonamides; Z79.899 Other long term (current) drug therapy; W18.09XA Striking against other object with subsequent fall, initial encounter; Y93.89 Activity, other specified; Y92.89 Other specified places as the place of occurrence of the external cause; Y99.8 Other external cause status; H53.2 Diplopia
CPT/HCPCS: 36415; 70450; 70486; 71045; 72125; 80053; 80320; 83880; 84484; 85025; 85610; 85730; 90471; 90715; 93005; 96374; 96376; 99291; J1170; J7030; 96361; 96375; 99281

== ENCOUNTER 2023-01-28 11:48 | Emergency (ER) | payer MEDICAID ==
[~2023-01-28] VITALS: Ht 172.7 cm; Wt 90.0 kg
[2023-01-28 11:58] VITALS: BP 157/95; PULSE 89; RESP 18; TEMP 98.8; O2SAT 98
== END 2023-01-28 13:43 | disposition left against medical advice (07) ==
LOC: ER 11:48
DX: H57.89 Other specified disorders of eye and adnexa (principal); Z53.21 Procedure and treatment not carried out due to patient leaving prior to being seen by health care provider
CPT/HCPCS: 99281

== ENCOUNTER 2024-07-01 03:35 | Emergency (ER) | payer MEDICAID ==
[~2024-07-01] VITALS: Ht 175.3 cm; Wt 87.0 kg
[2024-07-01 04:27] LABS: BASOPHILS # (AUTO) 0.1 X10'3 (0-0.2); BASOPHILS % (AUTO) 0.7 % (0-1); EOSINOPHILS # (AUTO) 0.4 X10'3 (0-0.9); EOSINOPHILS % (AUTO) 4.5 % (0-6); HEMATOCRIT 42.3 % (35.0-45.0); LYMPHOCYTES # (AUTO) 2.9 X10'3 (1.1-4.8); LYMPHOCYTES % (AUTO) 32.3 % (21-51); MEAN CORPUSCULAR HEMOGLOBIN 27.2 PG (27.0-31.0); MEAN CORPUSCULAR VOLUME 82.2 FL (78-98); MEAN PLATELET VOLUME 7.5 FL (7.4-10.4); MONOCYTES % (AUTO) 10.8 % (2-12); NEUTROPHILS # (AUTO) 4.6 X10'3 (1.8-7.7); NEUTROPHILS % (AUTO) 51.7 % (42-75); PLATELET COUNT 366 X10'3 (140-440); RED BLOOD COUNT 5.14 X10'6 (4.20-5.60); RED CELL DISTRIBUTION WIDTH 20.3 % (11.5-14.5)
[2024-07-01 04:48] LABS: ALANINE AMINOTRANSFERASE 35 U/L (12-78); ALBUMIN 3.8 G/DL (3.4-5.0); ALKALINE PHOSPHATASE 103 IU/L (46-116); ANION GAP 6 (8-16); ASPARTATE AMINO TRANSFERASE 35 U/L (10-37); BILIRUBIN,TOTAL 0.4 MG/DL (0.1-1.0); BLOOD UREA NITROGEN 22 MG/DL (7-18); BUN/CREATININE RATIO 26.5 (10.0-20.0); CALCIUM 10.6 MG/DL (8.5-10.1); CHLORIDE 102 MMOL/L (99-107); CREATININE 0.83 MG/DL (0.40-0.90); GLUCOSE 92 MG/DL (70-104); POTASSIUM 4.4 MMOL/L (3.5-5.1); SODIUM 138 MMOL/L (135-145); TOTAL CARBON DIOXIDE 29.6 MMOL/L (24-32); TOTAL PROTEIN 7.7 G/DL (6.4-8.2); eCRCL 77 ML/MIN; eGFR 71 ML/MIN
[2024-07-01 04:56] LABS: PRO BRAIN NATRIURETIC PEPTIDE 83 PG/ML (0-125)
[2024-07-01 05:00] LABS: ANISOCYTOSIS 1+
[2024-07-01] MEDS: aspirin 325mg tablet PO ONE (05:09)
[2024-07-01] MEDS: acetaminophen 325mg tablet PO ONE (05:09)
[2024-07-01] MEDS: ketorolac trometh 15mg/ml vial 15 MG/ML ML IV ONE (05:09)
[2024-07-01] MEDS ORDERED: heparin 25,000 UNIT/250ml bag 250 ML IV PRN (05:10)
[2024-07-01] MEDS ORDERED: heparin 10,000 units/1 ML INJ IV ONE (05:10)
[2024-07-01] MEDS ORDERED: heparin 10,000 units/1 ML INJ IV PRN (05:10)
[2024-07-01] MEDS: nitroGLYCERIN 0.4mg SUBLingual tab SL ONE (05:22)
[2024-07-01 06:29] LABS: APTT 29 SECONDS (22-32); PROTHROMBIN TIME 10.4 SECONDS (9.0-12.0)
[2024-07-01 06:30] VITALS: TEMP 96.8
[2024-07-01] MEDS: heparin 10,000 units/1 ML INJ IV ONE (07:30)
[2024-07-01] MEDS: MESSAGE TO NURSING IV ONE (07:30)
[2024-07-01] MEDS ORDERED: LOSA1TAB36 PO (09:02)
[2024-07-01 10:46] VITALS: BP 118/74; PULSE 97; RESP 13; O2SAT 100
== END 2024-07-01 10:47 | disposition home or self-care (01) ==
LOC: ER 05:40
DX: R07.89 Other chest pain (principal); I10 Essential (primary) hypertension; Z88.2 Allergy status to sulfonamides; Z98.890 Other specified postprocedural states
CPT/HCPCS: 36415; 71045; 80053; 83880; 84484; 85008; 85025; 85610; 85730; 93005; 96374; 99285; J1885

== ENCOUNTER 2025-04-25 09:35 | Emergency (ER) | payer MEDICAID ==
[~2025-04-25] VITALS: Ht 172.7 cm; Wt 93.4 kg
[2025-04-25 09:36] VITALS: BP 202/116; PULSE 66; O2SAT 100
[2025-04-25] MEDS: HYDROcodone/acetaminophen 10/325mg tab PO STA (09:54)
--- NOTE | 2025-04-25 10:19 | RADIOLOGY REPORT ---
PROCEDURE: Right shoulder radiographs. INDICATION: Shoulder Pain,RIGHT TECHNIQUE: 3 views of the right shoulder were obtained. COMPARISON: None FINDINGS: There is no evidence of acute fracture. There is inferior subluxation of the humeral head relative to the glenoid. IMPRESSION: 1. Inferior subluxation of the humeral head relative to the glenoid. CT recommended for further evaluation. 2. No acute fracture.
[2025-04-25] MEDS ORDERED: ketorolac trometh 30MG/ML vial 30 MG/ML VIAL IV ONE (10:25)
[2025-04-25] MEDS: ketorolac trometh 15mg/ml vial 15 MG/ML ML IV ONE (10:31)
--- NOTE | 2025-04-25 10:31 | Physician Documentation ---
History of Present Illness ~ Chief Complaint: Shoulder pain Stated Complaint: R SHOULDER PAIN Time Seen by MD: 10:09 Primary Medical Doctor: Chetan perry [facility] 59-year-old female presents with ongoing right shoulder pain with worsening severity over the last two days. States she has numbness and tingling in her right arm and hand. Denies any injury. He is that she was able to move her arm anterior and posteriorly recently but now is unable to rotate her shoulder at all without severe pain. Reports the pain is burning and sharp in nature Denies any acute injury. Day of Onset: Apr 25, 2025 Tetanus within 5 years?: No Medication Reconciliation Allergies: Coded Allergies: Sulfa (Sulfonamide Antibiotics) (Verified Allergy, Unknown, 07/01/24) Scheduled Cyclobenzaprine HCl (Cyclobenzaprine HCl), 1 TAB PO Q8H Ferrous Sulfate (Ferrous Sulfate), 1 TAB PO BID, (Reported) Lisinopril/Hydrochlorothiazide (Lisinopril-Hctz 20-12.5 mg Tab), 1 TAB PO DAILY, (Reported) Losartan/Hydrochlorothiazide (Losartan-Hctz 50-12.5 Mg Tab), 1 TAB PO DAILY, (Reported) Losartan/Hydrochlorothiazide (Losartan-Hctz 50-12.5 Mg Tab), 1 TAB PO DAILY Pantoprazole Sodium (Protonix), 1 TAB PO DAILY Terbinafine Hcl (Terbinafine Hcl), 1 TAB PO DAILY, (Reported) Scheduled PRN Hydrocodone Bit/Acetaminophen 5/325 MG ([place] 5/325 MG), 1 TAB PO Q6H PRN for pain Past Medical History Past Medical History: *CARDIOVASCULAR*, Hypertension, Anemia Past Surgical History: orthopedic surgeries Alcohol Use: Occasionally Drug Use: none Lives with: Spouse Lives In: Home Review of Systems All Other Systems at this time: Reviewed and Negative ROS As stated above in the HPI, otherwise all systems are reviewed and negative. Physical Exam Vital Signs: Temperature: 97.8, Heart Rate: 66, Respiratory Rate: 18, BP: 202/116, Pulse Oximetry: 100, Weight: 93.400 Oxygen Flow Rate: 0 Physical Exam General: Alert, no apparent distress. Neck: Full range of motion. Gastrointestinal: Soft, nontender, nondistended. Bowels sounds present. Extremities: Grossly decreased range of motion of the right upper extremity no deformity no swelling motor reflexes are intact Neurologic: Oriented x4. Psychiatric: Normal mood and affect. Skin: Normal color, warm and dry. No edema, no ecchymosis. Progress Results/Orders Results/Orders Orders - MIGUEL SOSA CONVEYOR BELT OPERATOR Ortho Orders (04/25/25 ) Completed Orders - MIGUEL SOSA CONVEYOR BELT OPERATOR Hydrocodone/Apap 10/325 ([place] 10/325mg (04/25/25 10:20) Gabapentin Capsule (Neurontin Capsule) (04/25/25 10:16) Ketorolac Trometh 30mg/Ml Vial (Toradol (04/25/25 10:25) Ketorolac Trometh 15mg/Ml Vial (Toradol (04/25/25 10:25) Medications Received in ER Medications (Trade) Dose Ordered Sig/Shashi Route PRN Reason Start Time Stop Time Status Last Admin Dose Admin ([place] 10/325mg tab) 1 tab ONCE STAT PO 04/25/25 09:47 04/25/25 09:48 DC 04/25/25 09:54 1 TAB (Neurontin capsule) 400 mg NOW STAT PO 04/25/25 10:16 04/25/25 10:18 DC 04/25/25 10:26 400 MG (Toradol injection) 15 mg ONCE ONCE IV 04/25/25 10:25 04/25/25 10:26 DC 04/25/25 10:31 15 MG Vital Signs 04/25/25 04/25/25 04/25/25 04/25/25 09:36 09:54 10:31 11:14 Temp 97.8 Pulse 66 Resp 20 18 18 16 B/P (MAP) 202/116 Pulse Ox 100 O2 Flow Rate 0 04/25/25 11:14 Resp 16 Medical Decision Making Additional information obtaine: old records Findings Per my interpretation of the patient's right shoulder x-ray that has notable subluxation of the humeral head. This clinically correlates with a suspected internal right rotator cuff derangement possible tear. Her motor activity is intact although physical exam is limited due to severe pain of the shoulder. I am currently recommended he has is pain management and physical therapy in the outpatient setting we will place her in his sling discharge her for evaluation. Differential Dx:Considerations: Include: AC separation, Adhesive capsulitis, arthritis, Bicipital tendonitis, Calcific tendonitis, Cervical disc disease, Contusion, Dislocation, Fracture: Humerus, Fracture: Scapula, Fracture: Clavicle, Gallbladder Disease, Hematoma, Impingement syndrome, Myocardial infarction, Neurovascular Injury, Rotator cuff injury, SC dislocation, Sprain, Subacromial bursitis, other Departure Disposition: 01 HOME / SELF CARE / HOMELESS Impression: Primary Impression: Shoulder pain Additional Impression: Shoulder joint pain Condition: Stable Discharge Instructions: Shoulder Pain, [id number] Additional Instructions: As discussed I suspect some internal right rotator cuff derangement based on your presentation and complaint. X-ray also clinically correlates to this. The next step would be to request an MRI from your primary care and a referral for physical therapy Referrals: NO PRIMARY CARE PROVIDER (PCP) Prescriptions Gabapentin (Neurontin) 400 Mg Capsule 1 CAP PO Q8H for 30 Days, #90 CAP 0 Refills Prov: MIGUEL SOSA NP 04/25/25 Hydrocodone Bit/Acetaminophen 5/325 MG ([place] 5/325 MG) 5 Mg/325 Mg Tablet 1 TAB PO Q6H PRN for pain, #14 TAB Prov: MIGUEL SOSA NP 04/25/25 Cyclobenzaprine HCl (Cyclobenzaprine HCl) 10 Mg Tablet 1 TAB PO Q8H for muscle spasms for 10 Days, #30 TAB Prov: MIGUEL SOSA NP 04/25/25 Education Educated: Patient Educated regarding: diagnosis Signature Scribe Signature: g Attestation: Scribed for Miguel Sosa [employer]ocad Detailer by Miguel Carranza NP . 04/25/25 11:21 MIGUEL SOSA NP Apr 25, 2025 10:31
[2025-04-25] MEDS: HYDROcodone/acetaminophen 10/325mg tab PO ONE (10:36)
[2025-04-25 11:14] VITALS: RESP 16
[2025-04-25] MEDS ORDERED: CYCL-394 PO (11:39)
[2025-04-25] MEDS ORDERED: HYDR-3965 PO ×2 (11:39→11:41)
[2025-04-25] MEDS ORDERED: GABA400C PO (11:55)
[2025-04-25 12:01] VITALS: TEMP 97.8
== END 2025-04-25 12:03 | disposition home or self-care (01) ==
LOC: ER 09:35
DX: M25.511 Pain in right shoulder (principal); I10 Essential (primary) hypertension; D64.9 Anemia, unspecified; Z88.2 Allergy status to sulfonamides; Z79.899 Other long term (current) drug therapy; Z72.89 Other problems related to lifestyle; Z98.890 Other specified postprocedural states
CPT/HCPCS: 73030; 96374; 99283; J1885; A4565